=== PATIENT | female | born 1930 | race African-American/Black ===

== ENCOUNTER 2017-12-03 08:54 | Emergency (ER) | payer MEDICARE, MEDICAID ==
[~2017-12-03] VITALS: Ht 170.2 cm; Wt 80.0 kg
[2017-12-03] MEDS ORDERED: LISI2.5T47 PO (09:03)
[2017-12-03] MEDS ORDERED: GABA-529 PO (09:03)
[2017-12-03] MEDS ORDERED: SODIUM CHLORIDE 0.9% 1,000 ML IV ONE (09:05)
[2017-12-03] MEDS ORDERED: MAGNESIUM 2 G PREMIX 50 ML IV STA (10:05)
[2017-12-03] MEDS ORDERED: IPRATROPIUM BROMIDE (0.02%) 0.5MG/2.5ML NEB HHN STA (10:05)
[2017-12-03] MEDS ORDERED: ALBUTEROL (0.083%) 2.5MG/3ML NEB HHN STA (10:05)
[2017-12-03] MEDS ORDERED: METHYLPREDNISOLONE SOD SUCC 125 MG/2 ML VIAL IV STA (10:05)
[2017-12-03 10:53] LABS: BASOPHILS % 0.7 % (0.0-2.0); CHLORIDE 108 mEq/L (98-107); EOSINOPHILS % 2.6 % (0.0-5.0); HEMATOCRIT. 35.8 % (36.0-48.0); HEMOGLOBIN. 11.8 g/dL (12.0-16.0); LYMPHOCYTES % 23.7 % (20.0-50.0); MEAN PLATELET VOLUME 9.5 fl (7.4-10.4); MONOCYTES % 7.4 % (2.0-8.0); NEUTROPHILS % 65.6 % (40.0-76.0); PLATELET 202 x1000/uL (130-400); RED BLOOD CELL COUNT 4.36 mill/uL (4.2-5.4); RED CELL DISTRIBUTION WIDTH 14.2 % (11.6-14.6)
[2017-12-03 10:54] LABS: PROTHROMBIN TIME 10.7 sec (9.4-11.6)
[2017-12-03 11:03] LABS: CREATINE KINASE 85 IU/L (26-192)
[2017-12-03 11:06] LABS: CREATINE KINASE MB FRACTION < 0.5 ng/mL (0.5-3.6)
[2017-12-03 11:13] LABS: CLARITY URINE CLEAR (CLEAR); COLOR URINE YELLOW (YELLOW); KETONES URINE NEGATIVE (NEGATIVE); LEUKOCYTE ESTERASE URINE NEGATIVE (NEGATIVE); NITRITE URINE NEGATIVE (NEGATIVE); OCCULT BLOOD URINE NEGATIVE (NEGATIVE); PH URINE 8.5 (4.5-8.0); PROTEIN URINE NEGATIVE (NEGATIVE); UROBILINOGEN URINE 0.2 E.U./dL (0.2-1.0)
[2017-12-03] MEDS ORDERED: LEVOFLOXACIN 500MG TABLET PO ONE (12:45)
[2017-12-03 13:22] VITALS: BP 142/78
== END 2017-12-03 13:46 | disposition home or self-care (01) ==
LOC: ER 09:32 → CANBEDREQ 14:19
DX: J20.9 Acute bronchitis, unspecified (principal); J45.901 Unspecified asthma with (acute) exacerbation; E86.0 Dehydration; I10 Essential (primary) hypertension; E11.9 Type 2 diabetes mellitus without complications; M54.30 Sciatica, unspecified side; D64.9 Anemia, unspecified; Z88.0 Allergy status to penicillin
CPT/HCPCS: 36415; 71045; 80053; 81003; 82550; 82553; 83605; 83690; 83880; 84484; 85025; 85610; 87040; 87086; 87804; 93005; 94640; 96361; 96374; 96375; 99285; J2930; J3475; J7030; J7611